=== PATIENT | female | born 1935 | race Caucasian/White ===

== ENCOUNTER 2017-01-04 07:12 | Day surgery (SDC) | payer OTHER ==
[~2017-01-04] VITALS: Ht 170.2 cm; Wt 91.0 kg
[~2017-01-04 07:12] MED LIST: ASPIRIN81 M2 PO; CALCIUM 600 +1 EA12 PO; CELEBREX200 MG PO; ELIQUIS5 MG PO; LEVOTHYROXINE50 MCG PO; LISINOPRIL-HCT1 EAC3 PO; METOPROLOL SUCC50 MG PO; MULTIVITAMIN1 EAC2 PO; NEXIUM40 MG PO; VITAMIN B-12250 MCG PO; VITAMIN D31000 UNI2 PO
== END 2017-01-04 14:50 | disposition home or self-care (01) ==
LOC: CATH 07:12
DX: I25.10 Atherosclerotic heart disease of native coronary artery without angina pectoris (principal); I48.0 Paroxysmal atrial fibrillation; I10 Essential (primary) hypertension; E78.5 Hyperlipidemia, unspecified; R53.82 Chronic fatigue, unspecified; Z79.01 Long term (current) use of anticoagulants
CPT/HCPCS: C1769; C1887; J1644; J2250; J3010